=== PATIENT | male | born 1990 | race Caucasian/White ===

== ENCOUNTER 2019-03-05 18:33 | Emergency (ER) | payer MEDICAID ==
[~2019-03-05] VITALS: Ht 175.3 cm; Wt 74.8 kg
--- NOTE | 2019-03-05 19:14 | NUR ---
BIB FAMILY WITH C/O DRY COUGH AND CINGESTION X 2 DAYS. AFEBRILE. HOLDING O2 SAT OF 98-100% ON R/A. WILL CONT TO MONITOR ,
--- NOTE | 2019-03-05 19:15 | NUR ---
GUSTAVO [facility]ILL PAC AT THE BED SIDE
[2019-03-05] MEDS ORDERED: IBUPROFEN 600 MG TABLET PO ONE ×2 (19:27→19:30)
[2019-03-05 20:37] VITALS: BP 114/68
--- NOTE | 2019-03-05 20:37 | NUR ---
Patient discharged to home in stable condition. Rx and Written and verbal after care instructions given. Patient verbalizes understanding of instruction.
== END 2019-03-05 20:38 | disposition home or self-care (01) ==
LOC: ER 18:40
DX: J06.9 Acute upper respiratory infection, unspecified (principal); B95.0 Streptococcus, group A, as the cause of diseases classified elsewhere
CPT/HCPCS: 86403-TC; 87070-TC